=== PATIENT | female | born 1960 | race Caucasian/White ===

== ENCOUNTER 2019-06-22 21:19 | Emergency (ER) | payer OTHER ==
[~2019-06-22] VITALS: Ht 177.8 cm; Wt 163.3 kg
[2019-06-22 22:25] LABS: CLARITY,URINE BLOODY; COLOR,URINE RED; GLUCOSE, URINE (UA) NEGATIVE (NEGATIVE); KETONES,URINE NEGATIVE (NEGATIVE); NITRITE,URINE POSITIVE (NEGATIVE); PH,URINE 5.5 (5-9); PROTEIN,URINE 3+ (NEGATIVE)
[2019-06-22 22:26] LABS: BACTERIA,URINE MODERATE /HPF; BILIRUBIN,URINE 1+ (NEGATIVE); LEUKOCYTE ESTERASE ,URINE NEGATIVE (NEGATIVE); SQUAMOUS EPITHELIAL CELL,UR 0-2 /HPF; UROBILINOGEN,URINE 0.2 MG/DL (NORMAL); WBC,URINE 0-2 /HPF
[2019-06-22 22:28] LABS: RBC,URINE TNTC /HPF
--- NOTE | 2019-06-22 23:22 | ED GU-Female ---
General Chief Complaint: - Urinary Stated Complaint: BLOOD IN URINE Nursing Triage Note: pt states blood in urine started around 1830 Nursing Sepsis Screen: No Definite Risk Source: patient History of Present Illness Date Seen by Provider: Jun 22, 2019 Time Seen by Provider: 23:22 Initial Comments 58-year-old female presenting with complaints of blood in her urine that started around 1830 tonight. She has not had this happen before. She is not complaining of any pain with urination. She was called during the day and told to hold her warfarin and she is on warfarin chronically due to atrial fibrillation. She follows with Dr. Gomez and she manages her dosing of the Warfarin. She was told to hold the warfarin today and was to be called on or Thursday about what to start back on. She has no pain in her bladder or abdomen but is having blood in her urine. She has no history of blood in her urine. Allergies and Home Medications Allergies Coded Allergies: levofloxacin (Verified Allergy, Unknown, 06/22/19) Patient Home Medication List Home Medication List Reviewed: Yes Review of Systems Review of Systems Constitutional: No chills, No fever EENTM: no symptoms reported Respiratory: no symptoms reported Cardiovascular: no symptoms reported Gastrointestinal: no symptoms reported Genitourinary: see HPI Musculoskeletal: no symptoms reported Skin: no symptoms reported Psychiatric/Neurological: No Symptoms Reported Past Hmucqwr-Rdnzob-Jewonw Hx Past Med/Social Hx: Reviewed Nursing Past Med/Soc Hx Patient Social History Alcohol Use: Denies Use Recreational Drug Use: No Smoking Status: Never a Smoker 2nd Hand Smoke Exposure: No Recent Foreign Travel: No Contact w/Someone Who Travel: No Recent Infectious Disease Expo: No Recent Hopitalizations: No Physical Abuse: No Sexual Abuse: No Mistreated: No Fear: No Seasonal Allergies Seasonal Allergies: No Past Medical History Surgeries: Yes Cardiac, Gallbladder, Hysterectomy Respiratory: No Cardiac: Yes Atrial Fibrillation, Hypertension Neurological: No Genitourinary: No Gastrointestinal: No Musculoskeletal: No Endocrine: No HEENT: No Cancer: No Psychosocial: No Integumentary: No Blood Disorders: No Physical Exam Vital Signs Vital Signs - First Documented 06/22/19 06/23/19 22:12 00:24 Temp 97.2 Pulse 79 Resp 18 B/P (MAP) 162/73 (102) Pulse Ox 98 O2 Delivery Room Air Capillary Refill : Less Than 3 Seconds Height, Weight, BMI Height: 5'10.00" Weight: 360lbs. oz. [id number]; BMI Method:Stated General Appearance: WD/WN, no apparent distress, obese HEENT: normal ENT inspection, pharynx normal Neck: supple, normal inspection Cardiovascular: normal peripheral pulses, regular rate, rhythm Respiratory: chest non-tender, lungs clear, normal breath sounds Gastrointestinal: normal bowel sounds, soft, no pulsatile mass, tenderness (mild tenderness to left lower abdomen with some palpation but not each time) Neurologic/Psychiatric: alert, normal mood/affect, oriented x 3 Skin: normal color, warm/dry Progress/Results/Core Measures Suspected Sepsis Recent Fever Within 48 Hours: No Infection Criteria Present: None New/Unexplained Altered Menta: No Sepsis Screen: No Definite Risk SIRS Temperature:97.2 Pulse: 79 Respiratory Rate: 18 Blood Pressure 162 /73 Mean: 102 Laboratory Tests 06/22/19 23:10: INR Comment 4.3H Results/Orders Lab Results Laboratory Tests Test 06/22/19 21:35 06/22/19 23:10 Range/Units Urine Color RED H Urine Clarity BLOODY H Urine pH 5.5 5-9 Urine Specific Dawson 1.025 H 1.016-1.022 Urine Protein 3+ H NEGATIVE Urine Glucose (UA) NEGATIVE NEGATIVE Urine Ketones NEGATIVE NEGATIVE Urine Nitrite POSITIVE H NEGATIVE Urine Bilirubin 1+ H NEGATIVE Urine Urobilinogen 0.2 NORMAL MG/DL Urine Leukocyte Esterase NEGATIVE NEGATIVE Urine RBC (Auto) 3+ H NEGATIVE Urine RBC TNTC H /HPF Urine WBC 0-2 /HPF Urine Squamous Epithelial Cells 0-2 /HPF Urine Crystals NONE /LPF Urine Bacteria MODERATE H /HPF Urine Casts NONE /LPF Urine Mucus NEGATIVE /LPF Urine Culture Indicated YES Prothrombin Time 43.0 H 12.2-14.7 SEC INR Comment 4.3 H 0.8-1.4 My Orders Orders - SYLVIE AYON MD Ua Culture If Indicated (06/22/19 21:33) Urine Culture (06/22/19 21:35) Protime With Inr (06/22/19 22:41) Phytonadione Oral Solution (Mephyton Ora (06/22/19 23:52) Vital Signs/I&O 06/22/19 06/23/19 22:12 00:24 Temp 97.2 97.2 Pulse 79 79 Resp 18 18 B/P (MAP) 162/73 (102) 162/73 (102) Pulse Ox 98 O2 Delivery Room Air Capillary Refill : Less Than 3 Seconds Blood Pressure Mean: 102 Progress Note #1: Progress Note UA shows blood in her urine and with having elevated INR will check that level as well. Progress Note #2: Progress Note INR came back at 4.3 and since this at a borderline level for recommendation of when to give Vitamin K supplement for bleeding will give 1 mg of Vitamin K orally and then have her keep pushing fluids to help flush out her urine. Check back with the primary care about her hematuria and Warfarin dosing. Counseled that she may require further workup for the hematuria such as with a urologist in case there might be a bladder mass or cancer or something that could be causing her hematuria rather than just simply be elevated INR. She states that she has had INR was high or higher without having blood in her urine before. Departure Impression Primary Impression: Hematuria Qualified Codes: R31.0 - Gross hematuria Additional Impression: Elevated INR (international normalized ratio) due to prior anticoagulant medication ingestion Disposition: 01 HOME, SELF-CARE Condition: Stable Departure-Patient Inst. Decision time for Depature: 00:19 Referrals: JOE GOMEZ MD (PCP) Primary Care Physician Patient Instructions: Blood in the Urine (Hematuria), Adult (DC), What to Do When Your INR Is Too High , Prothrombin Time (PT) Test and International Normalized Ratio (INR) Add. Discharge Instructions: Stay well hydrated and drink plenty of fluids to help flush your urine out and keep from getting obstructed. If you have pain over your bladder and are not able to urinate for more than 4-6 hours then return or seek medical care as you may have obstruction or retention that would cause you to need a catheter to empty your bladder if it has a blood clot obstructing your bladder. Check back with your doctor's office about your elevated INR. Tonight it was 4.3 and you were given a dose of 1 mg of Vitamin K to help with the bleeding and to bring the level down. All discharge instructions reviewed with patient and/or family. Voiced understanding. SYLVIE AYON MD Jun 22, 2019 23:22
[2019-06-22 23:32] LABS: INR 4.3 (0.8-1.4)
[2019-06-22] MEDS ORDERED: VITAMIN K 1 MG/ML ORAL SOLN 1 ML SYRINGE PO STA (23:52)
[2019-06-23 00:24] VITALS: BP 162/73
== END 2019-06-23 00:25 | disposition home or self-care (01) ==
LOC: EDUNIT# 21:19 → ER FS 21:20
DX: R31.9 Hematuria, unspecified (principal); R79.1 Abnormal coagulation profile; T45.515A Adverse effect of anticoagulants, initial encounter; I48.91 Unspecified atrial fibrillation; Z79.01 Long term (current) use of anticoagulants; Z88.1 Allergy status to other antibiotic agents; Z90.710 Acquired absence of both cervix and uterus
CPT/HCPCS: 36415; 81000; 85610; 87077; 87088; 87186; 99283

== ENCOUNTER → 2019-12-27 | Outpatient (CLI) | payer MEDICARE, OTHER | LOC: LAB FS 13:55 | PROVIDERS: ATTEND Family Medicine | DX: K92.1 Melena (principal) | CPT/HCPCS: 36415; 85018 ==

== ENCOUNTER → 2020-03-26 | Outpatient (CLI) | payer MEDICARE, OTHER ==
[2020-03-26 10:44] LABS: HEMOGLOBIN 14.2 G/DL (11.5-16.0); MEAN PLATELET VOLUME 9.7 FL (7.4-10.4); RED CELL DISTRIBUTION WIDTH 14.3 % (10.0-14.5); WHITE BLOOD COUNT 5.7 10^3/uL (4.3-11.0)
[2020-03-26 13:49] LABS: BILIRUBIN,TOTAL 0.6 MG/DL (0.1-1.0); CREATININE SERUM 2.09 MG/DL (0.60-1.30); POTASSIUM 3.7 MMOL/L (3.6-5.0); TOTAL PROTEIN 7.7 GM/DL (6.4-8.2)
[2020-03-26 15:53] LABS: TSH (THYROID ANALYZER) 3.84 UIU/ML (0.35-4.94)
== END ==
LOC: LAB FS 09:50
PROVIDERS: ATTEND Internal Medicine Cardiovascular Disease
DX: I48.0 Paroxysmal atrial fibrillation (principal); I25.10 Atherosclerotic heart disease of native coronary artery without angina pectoris; I10 Essential (primary) hypertension
CPT/HCPCS: 36415; 80053; 84443; 85027

== ENCOUNTER → 2020-04-09 | Outpatient (CLI) | payer MEDICARE, OTHER ==
[2020-04-09 11:07] LABS: CALCIUM 9.6 MG/DL (8.5-10.1); CREATININE SERUM 1.57 MG/DL (0.60-1.30); POTASSIUM 4.2 MMOL/L (3.6-5.0)
== END ==
LOC: LAB FS 10:22
PROVIDERS: ATTEND Internal Medicine Cardiovascular Disease
DX: E78.5 Hyperlipidemia, unspecified (principal); R79.89 Other specified abnormal findings of blood chemistry
CPT/HCPCS: 36415; 80048; 80061

== ENCOUNTER 2020-04-19 08:30 | Outpatient (RCR) | payer MEDICARE, OTHER ==
[2020-04-12 16:42] LABS: INR 1.1 (0.8-1.4); PROTHROMBIN TIME PATIENT 14.6 SEC (12.2-14.7)
[2020-04-19 08:55] LABS: INR 1.1 (0.8-1.4); PROTHROMBIN TIME PATIENT 14.7 SEC (12.2-14.7)
[2020-04-26 11:13] LABS: INR 1.2 (0.8-1.4); PROTHROMBIN TIME PATIENT 15.8 SEC (12.2-14.7)
== END 2020-07-11 | disposition home or self-care (01) ==
LOC: LAB FS 08:30
PROVIDERS: ATTEND Family Medicine
DX: Z51.81 Encounter for therapeutic drug level monitoring (principal); Z79.899 Other long term (current) drug therapy
CPT/HCPCS: 36415; 85610

== ENCOUNTER 2020-05-02 15:30 | Outpatient (RCR) | payer MEDICARE, OTHER ==
[2020-05-02 16:03] LABS: INR 2.4 (0.8-1.4); PROTHROMBIN TIME PATIENT 26.4 SEC (12.2-14.7)
== END 2020-07-31 | disposition home or self-care (01) ==
LOC: LAB FS 15:30
PROVIDERS: ATTEND Internal Medicine Cardiovascular Disease
DX: I48.0 Paroxysmal atrial fibrillation (principal); Z79.01 Long term (current) use of anticoagulants
CPT/HCPCS: 36415; 85610

== ENCOUNTER → 2020-06-12 | Outpatient (CLI) | payer MEDICARE, OTHER ==
[2020-06-12 09:29] LABS: POTASSIUM 4.1 MMOL/L (3.6-5.0)
[2020-06-12 09:30] LABS: ALBUMIN 3.9 GM/DL (3.2-4.5); BILIRUBIN,TOTAL 0.7 MG/DL (0.1-1.0); CALCIUM 9.6 MG/DL (8.5-10.1); CREATININE SERUM 1.61 MG/DL (0.60-1.30); TOTAL PROTEIN 7.1 GM/DL (6.4-8.2)
== END ==
LOC: LAB FS 07:41
PROVIDERS: ATTEND Internal Medicine Cardiovascular Disease
DX: E78.5 Hyperlipidemia, unspecified (principal); I10 Essential (primary) hypertension; I25.10 Atherosclerotic heart disease of native coronary artery without angina pectoris
CPT/HCPCS: 36415; 80053; 80061

== ENCOUNTER 2020-07-18 14:53 | Outpatient (RCR) | payer MEDICARE, OTHER ==
[2020-07-18 15:22] LABS: PROTHROMBIN TIME PATIENT 50.5 SEC (12.2-14.7)
[2020-07-18 15:23] LABS: INR 5.6 (0.8-1.4)
== END 2020-10-16 | disposition home or self-care (01) ==
LOC: LAB FS 14:53
PROVIDERS: ATTEND Internal Medicine Cardiovascular Disease
DX: Z51.81 Encounter for therapeutic drug level monitoring (principal); I48.0 Paroxysmal atrial fibrillation; Z79.01 Long term (current) use of anticoagulants
CPT/HCPCS: 36415; 85610

== ENCOUNTER → 2021-07-19 | Outpatient (CLI) | payer MEDICARE, OTHER ==
[2021-07-19 08:30] LABS: HEMATOCRIT 39 % (35-52); HEMOGLOBIN 12.4 g/dL (11.5-16.0); MEAN CORPUSCULAR HEMOGLOBIN 28 pg (25-34); MEAN CORPUSCULAR HGB CONC 32 g/dL (32-36); MEAN CORPUSCULAR VOLUME 89 fL (80-99); PLATELET COUNT 264 10^3/uL (130-400); WHITE BLOOD COUNT 4.1 10^3/uL (4.3-11.0)
[2021-07-19 08:31] LABS: MEAN PLATELET VOLUME 8.9 fL (9.0-12.2)
[2021-07-19 08:50] LABS: ALBUMIN 3.6 GM/DL (3.2-4.5); BILIRUBIN,TOTAL 0.4 MG/DL (0.1-1.0); CREATININE SERUM 1.26 MG/DL (0.60-1.30); POTASSIUM 4.2 MMOL/L (3.6-5.0); TOTAL PROTEIN 6.8 GM/DL (6.4-8.2)
== END ==
LOC: LAB FS 08:08
DX: I48.0 Paroxysmal atrial fibrillation (principal); I10 Essential (primary) hypertension; E78.5 Hyperlipidemia, unspecified; Z79.01 Long term (current) use of anticoagulants
CPT/HCPCS: 36415; 80053; 80061; 85027

== ENCOUNTER → 2022-02-19 | Outpatient (CLI) | payer MEDICARE, OTHER ==
[2022-02-19 09:47] LABS: POTASSIUM 4.2 MMOL/L (3.6-5.0)
[2022-02-19 09:48] LABS: ALBUMIN 3.7 GM/DL (3.2-4.5); BILIRUBIN,TOTAL 0.5 MG/DL (0.1-1.0); CALCIUM 8.9 MG/DL (8.5-10.1); CREATININE SERUM 1.17 MG/DL (0.60-1.30); TOTAL PROTEIN 7.1 GM/DL (6.4-8.2)
== END ==
LOC: LAB FS 08:42
PROVIDERS: ATTEND Internal Medicine Cardiovascular Disease
DX: I48.0 Paroxysmal atrial fibrillation (principal); I25.10 Atherosclerotic heart disease of native coronary artery without angina pectoris; E78.5 Hyperlipidemia, unspecified
CPT/HCPCS: 36415; 80053; 80061

== ENCOUNTER → 2022-08-22 | Outpatient (CLI) | payer MEDICARE, OTHER | LOC: LAB FS 12:20 | PROVIDERS: ATTEND Registered Nurse Emergency | DX: M79.605 Pain in left leg (principal) | CPT/HCPCS: 36415; 85379 ==